=== PATIENT | female | born 1955 | race Caucasian/White ===

== ENCOUNTER 2020-09-20 20:17 | Inpatient (IN) | payer OTHER ==
[2020-09-20] MEDS ORDERED: VANCOMYCIN IV PER PHARMACY 1 EACH MISC MISCELLANE PRN (20:49)
[2020-09-20] MEDS ORDERED: VANCOMYCIN 1,750 MG in SODIUM CHLORIDE 0.9% 500 ML 500 ML IVPB STA (20:57)
[2020-09-20 21:00] LABS: Basophils % (A) 0 %; Eosinophils # (A) 0.1 k/uL (0-0.7); Eosinophils % (A) 1 %; HCT 36.8 % (34.0-46.0); HGB 12.1 gm/dL (11.4-16.0); Lymphocytes # (A) 1.7 k/uL (1.0-4.8); Lymphocytes % (A) 15 %; MCH 30.9 pg (25.0-35.0); MCHC 32.9 g/dL (31.0-37.0); MCV 93.9 fL (80.0-100.0); Mean Platelet Volume 8.1; Monocytes # (A) 0.5 k/uL (0-1.0); Monocytes % (A) 4 %; Neutrophils # (A) 8.6 k/uL (1.3-7.7); Neutrophils % (A) 78 %; Platelet Count 210 k/uL (150-450); RBC 3.92 m/uL (3.80-5.40); RDW 13.6 % (11.5-15.5)
[2020-09-20 21:09] LABS: African American GFR (CKD) >90 (>60 ml/min/1.73 sqM); Anion Gap 11 mmol/L; Blood Urea Nitrogen 21 mg/dL (7-17); Calcium 8.4 mg/dL (8.4-10.2); Carbon Dioxide 17 mmol/L (22-30); Chloride 108 mmol/L (98-107); Glucose 296 mg/dL (74-99); Non-African American GFR(CKD) 82 (>60 ml/min/1.73 sqM); Potassium 4.8 mmol/L (3.5-5.1); Sodium 136 mmol/L (137-145)
[2020-09-20 21:13] LABS: Magnesium 0.9 mg/dL (1.6-2.3)
[2020-09-20 21:36] LABS: INR 0.9 (<1.2); Prothrombin Time 9.8 sec (9.0-12.0)
[2020-09-20 21:38] LABS: Partial Thromboplastin Time 19.9 sec (22.0-30.0)
[2020-09-20 21:55] LABS: Glucose,Whole Blood 310 mg/dL (75-99)
[2020-09-20] MEDS: SODIUM CHLORIDE 0.9% 1,000 ML IV SCH (21:57)
--- NOTE | 2020-09-20 22:12 | ED ---
General Adult HPI - General Chief complaint: Arrhythmia/Palpitations Stated complaint: Tachycardia Time Seen by Provider: 09/20/20 20:30 Source: patient, RN/MD, RN notes reviewed, old records reviewed Mode of arrival: EMS Limitations: no limitations - History of Present Illness Initial comments: Patient is a 64-year-old female with past medical history remarkable for diabetes, hypertension, stomach ulcer percents emergency department after being transferred from an outside facility. At the outside facility, they diagnosed her with sinus tachycardia versus atrial flutter. They also believe that she had a left-sided pneumonia. She originally presented due to palpitations over the left side of her chest. She recently had a decrease in her metoprolol dosage. They're pending diagnosis was rebound his tachycardia versus infectious. Chest x-ray showed a left-sided pneumonia at that time and the patient had an elevated lactic acid above 4. They sent her to our emergency department for further evaluation. At the outside department, she did receive 1 g of Rocephin. She also received according to sign out nursing, 2400 mL of normal saline. Due to the concern for possible atrial flutter versus SVT versus sinus tachycardia, the outside emergency department did place the patient on a Labetalol drip. This was immediately discontinued upon arrival to our emergency department. The patient continues to state that she has mild palpitations with rhinorrhea as well as a mild nonproductive cough. She denies any fevers or chills. Denies any other chest pain, dyspnea. Denies any abdominal pain, nausea, vomiting, dysuria, hematuria, vaginal discharge or bleeding. She has no other acute complaints at this time. Patient states that she did feel right handed earlier when she had the palpitations. Upon arrival to our emergency department, patient's tachycardia is improved from 140 down to 100-110 bpm. Vital signs are otherwise stable. - Related Data Home Medications Medication Instructions Recorded Confirmed Insulin Detemir [Levemir Flextouch] 30 units SQ HS 09/20/20 09/20/20 Insulin Detemir [Levemir Flextouch] See Protocol SQ DAILY 09/20/20 09/20/20 Levothyroxine Sodium [Synthroid] 75 mcg PO AC-BRKFST 09/20/20 09/20/20 Lisinopril-Hctz 20-12.5 mg 1 tab PO DAILY 09/20/20 09/20/20 [Zestoretic 20-12.5] Metoprolol Succinate [Toprol XL] 25 mg PO HS 09/20/20 09/20/20 Pantoprazole Sodium [Protonix] 40 mg PO AC-BID 09/20/20 09/20/20 Pravastatin Sodium [Pravachol] 20 mg PO HS 09/20/20 09/20/20 glipiZIDE XL [Glucotrol Xl] 20 mg PO HS 09/20/20 09/20/20 metFORMIN HCL [Glucophage] 1,000 mg PO BID 09/20/20 09/20/20 sitaGLIPtin [Januvia] 100 mg PO DAILY 09/20/20 09/20/20 Allergies Allergy/AdvReac Type Severity Reaction Status Date / Time No Known Allergies Allergy Verified 09/20/20 21:28 Review of Systems ROS Statement: Those systems with pertinent positive or pertinent negative responses have been documented in the HPI. Review of Systems: CONST: Denies fever EYES: Denies blurry vision ENT: Endorses nasal congestion C/V: Endorses chest palpitations RESP: Denies shortness of breath GI: Denies abdominal pain : Denies dysuria SKIN: Denies rash. MSK: Denies joint pain. NEURO: Denies headache ROS Other: All systems not noted in ROS Statement are negative. Past Medical History Past Medical History: Diabetes Mellitus, Hypertension Additional Past Medical History / Comment(s): stomach ulcer History of Any Multi-Drug Resistant Organisms: None Reported Past Surgical History: Section Past Psychological History: No Psychological Hx Reported Smoking Status: Former smoker Past Alcohol Use History: None Reported Past Drug Use History: None Reported General Exam - General Exam Comments Initial Comments: General: Appears in no acute distress.. Appears nontoxic. HEAD: Normal with no signs of head trauma. EYES: PERRLA, EOMI, conjunctiva normal, no discharge. Pupils are 3 mm and equal bilaterally. ENT: Hearing grossly intact, normal oropharynx. RESPIRATORY: Clear breath sounds bilaterally. No wheezes, rales, or rhonchi. C/V: Patient is tachycardic with a regular rhythm. S1 and S2 auscultated. No peripheral edema. Peripheral pulses are 2+ and intact throughout. ABD: Abd is soft, nontender, nondistended. Unremarkable abdominal exam. EXT: Normal range of motion, no obvious deformity SKIN: No rashes or lesions observed on exposed skin. NEURO: Alert and oriented 4. No focal sensory strength deficits. 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 She has a lactic acidosis, is tachycardic. Remainder of her vital signs are unremarkable. There was evidence of a left-sided pneumonia on chest x-ray the outside hospital. Patient already received Rocephin at the outside hospital, and therefore we will obtain blood cultures here as well as a repeat lactic acid level. Patient will be started on vancomycin. The outside hospital already met the 20 mL per KG fluid requirement, patient will be started on maintenance drip. We will obtain broad repeat laboratory studies including a d-dimer, lactic acid, basic labs, troponin, COVID-19 swab. Repeat EKG was also obtained. She'll be connected to continuous site monitor while she is in the department. She was in agreement with this plan. As stated in the HPI, the low beta all drip that the patient was started on at the outside hospital was stopped immediately upon arrival in o emergency department. Repeat EKG revealed normal sinus tachycardia without any signs of acute is chemia. I did review the patient's prior EKG from the outside hospital and it appears to be sinus tachycardia, without signs of atrial flutter, SVT, atrial fibrillation. Also no signs of acute ischemia on his outside EKG. Repeat laboratory studies were remarkable for a hypomagnesemia of 0.8 which was replenished. Troponin is negative. COVID-19 swab is negative. Patient is hyperglycemic. Bicarb is slightly decreased to 17, no anion gap. Patient has a slight leukocytosis of 11.0. D-dimer is within normal limits. Repeat lactic acid is elevated to 5.1, which is unexpected as she received >20cc/kg fluids at the outside facility. Repeat exam, patient remains relatively a symptomatically. She states her palpitations are improving. Patient's tachycardia is also improved down to approximately 100 bpm. I did discuss with her the results of her laboratory studies no we will continue antibiotics patient will require admission hospital for evaluation by cardiology. She was in agreement this plan. Consult to Dr. 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 He can evaluated the patient and the morning. I spoke with the admitting team, [facility] physician Dr. York as the patient's PCP does not admit under any group at this hospital. He accepted the admission. We determined that the patient should be started on cefepime in addition to the vancomycin to cover for sepsis as well as administered in additional 1 L fluid bolus in addition to maintenance fluids. Repeat lactic acid will be followed up. Patient will be admitted to stepdown telemetry. Patient was admitted and serous condition to the telemetry stepdown floor. - Lab Data Result diagrams: 09/20/20 20:52 09/20/20 20:52 Lab Results 09/20/20 09/20/20 09/20/20 Range/Units 20:52 20:52 20:52 WBC 11.0 H (3.8-10.6) k/uL RBC 3.92 (3.80-5.40) m/uL Hgb 12.1 (11.4-16.0) gm/dL Hct 36.8 (34.0-46.0) % MCV 93.9 (80.0-100.0) fL MCH 30.9 (25.0-35.0) pg MCHC 32.9 (31.0-37.0) g/dL RDW 13.6 (11.5-15.5) % Plt Count 210 (150-450) k/uL MPV 8.1 Neutrophils % 78 % Lymphocytes % 15 % Monocytes % 4 % Eosinophils % 1 % Basophils % 0 % Neutrophils # 8.6 H (1.3-7.7) k/uL Lymphocytes # 1.7 (1.0-4.8) k/uL Monocytes # 0.5 (0-1.0) k/uL Eosinophils # 0.1 (0-0.7) k/uL Basophils # 0.0 (0-0.2) k/uL PT 9.8 (9.0-12.0) sec INR 0.9 (<1.2) APTT 19.9 L (22.0-30.0) sec D-Dimer 0.27 (<0.60) mg/L FEU Sodium 136 L (137-145) mmol/L Potassium 4.8 (3.5-5.1) mmol/L Chloride 108 H (98-107) mmol/L Carbon Dioxide 17 L (22-30) mmol/L Anion Gap 11 mmol/L BUN 21 H (7-17) mg/dL Creatinine 0.78 (0.52-1.04) mg/dL Est GFR (CKD-EPI)AfAm >90 (>60 ml/min/1.73 sqM) Est GFR (CKD-EPI)NonAf 82 (>60 ml/min/1.73 sqM) Glucose 296 H (74-99) mg/dL POC Glucose (mg/dL) (75-99) mg/dL POC Glu Packing Tractor Machine Operator ID Plasma Lactic Acid Jose Carlos (0.7-2.0) mmol/L Calcium 8.4 (8.4-10.2) mg/dL Magnesium 0.9 L* (1.6-2.3) mg/dL Troponin I (0.000-0.034) ng/mL Coronavirus (PCR) (Not Detectd) 09/20/20 09/20/20 09/20/20 Range/Units 20:52 20:52 20:52 WBC (3.8-10.6) k/uL RBC (3.80-5.40) m/uL Hgb (11.4-16.0) gm/dL Hct (34.0-46.0) % MCV (80.0-100.0) fL MCH (25.0-35.0) pg MCHC (31.0-37.0) g/dL RDW (11.5-15.5) % Plt Count (150-450) k/uL MPV Neutrophils % % Lymphocytes % % Monocytes % % Eosinophils % % Basophils % % Neutrophils # (1.3-7.7) k/uL Lymphocytes # (1.0-4.8) k/uL Monocytes # (0-1.0) k/uL Eosinophils # (0-0.7) k/uL Basophils # (0-0.2) k/uL PT (9.0-12.0) sec INR (<1.2) APTT (22.0-30.0) sec D-Dimer (<0.60) mg/L FEU Sodium (137-145) mmol/L Potassium (3.5-5.1) mmol/L Chloride (98-107) mmol/L Carbon Dioxide (22-30) mmol/L Anion Gap mmol/L BUN (7-17) mg/dL Creatinine (0.52-1.04) mg/dL Est GFR (CKD-EPI)AfAm (>60 ml/min/1.73 sqM) Est GFR (CKD-EPI)NonAf (>60 ml/min/1.73 sqM) Glucose (74-99) mg/dL POC Glucose (mg/dL) (75-99) mg/dL POC Glu Packing Tractor Machine Operator ID Plasma Lactic Acid Jose Carlos 5.1 H* (0.7-2.0) mmol/L Calcium (8.4-10.2) mg/dL Magnesium (1.6-2.3) mg/dL Troponin I <0.012 (0.000-0.034) ng/mL Coronavirus (PCR) Not Detected (Not Detectd) 09/20/20 09/20/20 Range/Units 21:22 21:53 WBC (3.8-10.6) k/uL RBC (3.80-5.40) m/uL Hgb (11.4-16.0) gm/dL Hct (34.0-46.0) % MCV (80.0-100.0) fL MCH (25.0-35.0) pg MCHC (31.0-37.0) g/dL RDW (11.5-15.5) % Plt Count (150-450) k/uL MPV Neutrophils % % Lymphocytes % % Monocytes % % Eosinophils % % Basophils % % Neutrophils # (1.3-7.7) k/uL Lymphocytes # (1.0-4.8) k/uL Monocytes # (0-1.0) k/uL Eosinophils # (0-0.7) k/uL Basophils # (0-0.2) k/uL PT (9.0-12.0) sec INR (<1.2) APTT (22.0-30.0) sec D-Dimer (<0.60) mg/L FEU Sodium (137-145) mmol/L Potassium (3.5-5.1) mmol/L Chloride (98-107) mmol/L Carbon Dioxide (22-30) mmol/L Anion Gap mmol/L BUN (7-17) mg/dL Creatinine (0.52-1.04) mg/dL Est GFR (CKD-EPI)AfAm (>60 ml/min/1.73 sqM) Est GFR (CKD-EPI)NonAf (>60 ml/min/1.73 sqM) Glucose (74-99) mg/dL POC Glucose (mg/dL) 310 H (75-99) mg/dL POC Glu Packing Tractor Machine Operator ID Danni Humphrey Plasma Lactic Acid Jose Carlos (0.7-2.0) mmol/L Calcium (8.4-10.2) mg/dL Magnesium 0.8 L* (1.6-2.3) mg/dL Troponin I (0.000-0.034) ng/mL Coronavirus (PCR) (Not Detectd) - EKG Data -: EKG Interpreted by Me EKG Comments: 12-lead Electrocardiogram Interpretation Note EKG was reviewed and interpreted by myself. 12-lead ECG performed at 2021 is interpreted by me as revealing sinus tachycardia at a rate of 108 beats per minute. Orrum is normal. NC interval is 176 seconds, QRS duration is 82 ms, QTc is 434 ms.. There were no ST or T wave abnormalities to suggest myocardial ischemia or injury. R wave progression across the precordium was satisfactory. By my interpretation this EKG is non-diagnostic for acute ischemia. Disposition Clinical Impression: Lactic acidosis, Sepsis, Palpitations, Hypomagnesemia, Community acquired pneumonia, Hyperglycemia, History of diabetes mellitus, Sinus tachycardia Disposition: ADMITTED IP TO THIS HOSP Condition: Serious Referrals: Thai Nelson MD [Primary Care Provider] - 1-2 days
[2020-09-20] MEDS ORDERED: KETOROLAC 15 MG/ML 1 ML VIAL IVP PRN (22:15)
[2020-09-20] MEDS ORDERED: NALOXONE 0.4 MG/ML 1 ML VIAL IV PRN (22:15)
[2020-09-20] MEDS ORDERED: ONDANSETRON 4 MG/2 ML VIAL IVP PRN (22:15)
[2020-09-20] MEDS ORDERED: MORPHINE SULFATE 4 MG/ML SYRINGE IV PRN (22:15)
[2020-09-20] MEDS ORDERED: SODIUM CHLORIDE 0.9% 1,000 ML IV ONE (22:23)
[2020-09-20] MEDS ORDERED: CEFEPIME 1 GM in SODIUM CHLORIDE 0.9% 50 ML IVPB ONE (22:30)
[2020-09-20] MEDS: MAGNESIUM SULFATE-D5W PMX 1 GM in DEXTROSE/WATER 1 100ML.BAG IVPB SCH ×2 (22:48→23:49)
[2020-09-21] MEDS ORDERED: INSULIN ASPART (NovoLOG) 100 UNIT/ML VIAL SQ SCH
[2020-09-21] MEDS ORDERED: VANCOMYCIN IV PER PHARMACY 1 EACH MISC MISCELLANE PRN (00:11)
--- NOTE | 2020-09-21 00:12 | P.HPIM ---
History of Present Illness H&P Date: 09/20/20 The patient is a 64-year-old female with a PMH of type II DM, hypertension, hyperlipidemia, and hypothyroidism who was sent in from [facility] where she presented earlier today with complaints of palpitations and not feeling well. The patient reports that she had been feeling somewhat under the weather over the past 1-2 days and that today she became alarmed when she felt palpitations, at which time she decided to go to the emergency room. The patient did report that her chronic metoprolol was reduced from 25 mg twice a day to 25 mg once daily by her multicultural services librarian Dr. Cotto. Patient reports and unchanged chronic nonproductive cough along with just feeling lethargic. She denied fevers, chills, nausea, vomiting, diarrhea. Denied headaches, numbness, tingling, visual changes, neck pain. Denied rashes, urinary complaints. At [facility], the patient underwent an extensive evaluation. Her vitals were initially BP 163/92, pulse 131, SpO2 97%, respirations 17, and temp 98.4. Chest x-ray revealed a possible left basilar pneumonia. EKG revealed sinus tachycardia. Laboratory evaluation revealed WC count of 15.4 and lactic acid 4.7. The patient was subsequently transferred to [facility] for further management. At our facility, the patient's lactic acid was 5.1, WC count 11.0, troponin less than 0.012, and magnesium 0.9. Burdick virus PCR was negative. EKG revealed sinus tachycardia at 108 bpm. Review of systems: Pertinent positives and negatives as discussed in HPI, a complete review of systems was performed and all other systems are negative. Physical examination: General: non toxic, no distress, appears at stated age, obese Derm: no unusual rashes/lesions no unusual ecchymoses, warm, dry Head: atraumatic, normocephalic, symmetric Eyes: EOMI, no lid lag, anicteric sclera, pupils equal round reactive to light ENT: Nose and ears atraumatic, no thrush, no pharyngeal erythema Neck: No thyromegaly, no cervical lymphadenopathy, trachea midline, supple Mouth: no lip lesion, mucus membranes moist Cardiovascular: S1S2 reg, no murmur, positive posterior tibial pulse bilateral, no edema, capillary refill less than 2 seconds Lungs: CTA bilateral, no rhonchi, no rales , no accessory muscle use Abdominal: soft, nontender to palpation, no guarding, no appreciable organomegaly, normal bowel sounds Ext: no gross muscle atrophy, muscle strength 5 out of 5 in all 4 extremities grossly, no contractures, Neuro: CN II-XI grossly intact, light touch intact all 4 extremities, finger to nose within normal limits, negative kernigs Psych: Alert, oriented, appropriate affect Assessment/plan SIRS, unknown etiology -C/w broad spectrum IV antibiotics at this time -Follow up blood cultures -Continue with IV fluids Lactic acidosis -Monitor to resolution Hypomagnesemia -Replace and monitor Chronic conditions: Type II DM, hypertension, hyperlipidemia -Continue home meds -Lispro insulin sliding scale blood glucose monitoring -Check A1c DVT prophylaxis -Heparin subq The patient is admitted with an anticipated greater than 2 midnight stay for evaluation of SIRS. CODE STATUS:Full Code Discussed with: Patient Anticipated discharge date: 2-[address]: Home Past Medical History Past Medical History: Diabetes Mellitus, Hypertension Additional Past Medical History / Comment(s): stomach ulcer History of Any Multi-Drug Resistant Organisms: None Reported Past Surgical History: Section Past Psychological History: No Psychological Hx Reported Smoking Status: Former smoker Past Alcohol Use History: None Reported Past Drug Use History: None Reported Medications and Allergies Home Medications Medication Instructions Recorded Confirmed Type Insulin Detemir [Levemir Flextouch] 30 units SQ HS 09/20/20 09/20/20 History Insulin Detemir [Levemir Flextouch] See Protocol SQ DAILY 09/20/20 09/20/20 History Levothyroxine Sodium [Synthroid] 75 mcg PO AC-BRKFST 09/20/20 09/20/20 History Lisinopril-Hctz 20-12.5 mg 1 tab PO DAILY 09/20/20 09/20/20 History [Zestoretic 20-12.5] Metoprolol Succinate [Toprol XL] 25 mg PO HS 09/20/20 09/20/20 History Pantoprazole Sodium [Protonix] 40 mg PO AC-BID 09/20/20 09/20/20 History Pravastatin Sodium [Pravachol] 20 mg PO HS 09/20/20 09/20/20 History glipiZIDE XL [Glucotrol Xl] 20 mg PO HS 09/20/20 09/20/20 History metFORMIN HCL [Glucophage] 1,000 mg PO BID 09/20/20 09/20/20 History sitaGLIPtin [Januvia] 100 mg PO DAILY 09/20/20 09/20/20 History Allergies Allergy/AdvReac Type Severity Reaction Status Date / Time No Known Allergies Allergy Verified 09/20/20 21:28 Physical Exam Vitals: Vital Signs Temp Pulse Pulse Resp BP Pulse Ox 09/20/20 20:30 105 H 106 H 18 117/62 97 09/20/20 20:20 98 F 109 H 18 113/65 97 Intake and Output 09/20/20 09/20/20 09/21/20 14:59 22:59 06:59 Other: Weight 99.79 kg Results CBC & Chem 7: 09/20/20 20:52 09/20/20 20:52 Labs: Abnormal Lab Results - Last 24 Hours (Table) 09/20/20 09/20/20 09/20/20 Range/Units 20:52 20:52 20:52 WBC 11.0 H (3.8-10.6) k/uL Neutrophils # 8.6 H (1.3-7.7) k/uL APTT 19.9 L (22.0-30.0) sec Sodium 136 L (137-145) mmol/L Chloride 108 H (98-107) mmol/L Carbon Dioxide 17 L (22-30) mmol/L BUN 21 H (7-17) mg/dL Glucose 296 H (74-99) mg/dL POC Glucose (mg/dL) (75-99) mg/dL Plasma Lactic Acid Jose Carlos (0.7-2.0) mmol/L Magnesium 0.9 L* (1.6-2.3) mg/dL 09/20/20 09/20/20 09/20/20 Range/Units 20:52 21:22 21:53 WBC (3.8-10.6) k/uL Neutrophils # (1.3-7.7) k/uL APTT (22.0-30.0) sec Sodium (137-145) mmol/L Chloride (98-107) mmol/L Carbon Dioxide (22-30) mmol/L BUN (7-17) mg/dL Glucose (74-99) mg/dL POC Glucose (mg/dL) 310 H (75-99) mg/dL Plasma Lactic Acid Jose Carlos 5.1 H* (0.7-2.0) mmol/L Magnesium 0.8 L* (1.6-2.3) mg/dL
[2020-09-21 03:17] LABS: HCT 30.5 % (34.0-46.0); HGB 10.6 gm/dL (11.4-16.0); MCHC 34.7 g/dL (31.0-37.0); MCV 92.3 fL (80.0-100.0); Mean Platelet Volume 7.5; Platelet Count 200 k/uL (150-450); RDW 14.1 % (11.5-15.5); WBC 9.4 k/uL (3.8-10.6)
[2020-09-21 03:32] LABS: African American GFR (CKD) >90 (>60 ml/min/1.73 sqM); Anion Gap 6 mmol/L; Blood Urea Nitrogen 18 mg/dL (7-17); Carbon Dioxide 20 mmol/L (22-30); Chloride 112 mmol/L (98-107); Glucose 267 mg/dL (74-99); Magnesium 1.6 mg/dL (1.6-2.3); Non-African American GFR(CKD) 85 (>60 ml/min/1.73 sqM); Potassium 4.3 mmol/L (3.5-5.1); Sodium 138 mmol/L (137-145)
[2020-09-21 05:56] LABS: Glucose,Whole Blood 220 mg/dL (75-99)
[2020-09-21] MEDS: INSULIN ASPART (NovoLOG) 100 UNIT/ML VIAL SQ SCH ×4 (05:58→20:27)
[2020-09-21] MEDS: PANTOPRAZOLE 40 MG TABLET PO SCH ×2 (05:59→17:04)
[2020-09-21] MEDS: LEVOTHYROXINE 75 MCG TAB PO SCH (05:59)
--- NOTE | 2020-09-21 07:22 | XR ---
EXAMINATION TYPE: XR chest 1V DATE OF EXAM: 09/21/2020 COMPARISON: NONE HISTORY: 64 year-old female shortness of breath, dyspnea TECHNIQUE: Single frontal view of the chest is obtained. FINDINGS: Heart upper limits of normal in size. There is some opacity at the peripheral left base that seems to partially silhouette the cardiac apex. Right lung and pleural space appear clear. IMPRESSION: Peripheral left basilar opacity partially silhouettes the cardiac apex. Correlate for underlying atel ectasis versus pneumonia.
[2020-09-21] MEDS: HEPARIN SODIUM,PORCINE/PF 5,000 UNIT/0.5 ML SYRINGE SQ SCH ×3 (08:54→23:39)
[2020-09-21] MEDS: INSULIN DETEMIR (LEVEMIR) 100 UNIT/ML SYR SQ SCH (08:54)
[2020-09-21] MEDS: MAGNESIUM OXIDE 400 MG TAB PO SCH ×2 (08:54→20:29)
[2020-09-21] MEDS: SODIUM CHLORIDE 0.9% 1,000 ML IV SCH ×2 (08:54→17:07)
[2020-09-21] MEDS: lisinopriL 20 MG TAB PO SCH (08:55)
[2020-09-21] MEDS ORDERED: NON FORMULARY DRUG (Sitagliptin 100 MG Tab) PO SCH (09:00)
[2020-09-21] MEDS ORDERED: LISINOPRIL-HCTZ 20-12.5 MG 1 EACH TAB PO SCH (09:00)
[2020-09-21] MEDS ORDERED: NON FORMULARY DRUG (Metformin Hcl [Glucophage] 1,000 MG Tablet) PO SCH (09:00)
[2020-09-21] MEDS ORDERED: METOPROLOL TARTRATE 25 MG TAB PO SCH (10:15)
--- NOTE | 2020-09-21 10:16 | P.PN ---
Subjective Progress Note Date: 09/21/20 Patient was seen and evaluated by me today. She was sitting at the edge of the bed. She denies any shortness of breath or cough. Patient said that her main concern with palpitation and fast heart rate around 130 at home. Patient told me that her sales administration manager decrease her metoprolol dose from 25 mg of metoprolol tartrate twice daily to 25 mg Toprol-XL once a day. Patient was evaluated in the ER and chest x-ray showed possible left lung infiltrate concerning for underlying pneumonia or atelectasis. Patient does not have any clinical symptoms of pneumonia. For unclear reasons to me, patient was started on IV cefepime and vancomycin. No procalcitonin was ordered. Her heart rate this morning was around 102 at rest. Objective - Vital Signs Vital signs: Vital Signs Temp 97.8 F 09/21/20 08:00 Pulse 103 H 09/21/20 08:00 Resp 16 09/21/20 08:00 BP 130/65 09/21/20 08:00 Pulse Ox 98 09/21/20 08:00 Intake & Output 09/20/20 09/21/20 09/21/20 18:59 06:59 18:59 Intake Total 250 240 Balance 250 240 Weight 105.4 kg Intake: Oral 250 240 Other: Voiding Method Toilet # Voids 1 - Exam General: The patient is awake and alert, in no distress Eye: there is normal conjunctiva bilaterally. Neck: The neck is supple, there is no JVD. Cardiovascular: Normal S1-S2, no S3-S4, no murmurs. Respiratory: Lungs clear to auscultation bilaterally Gastrointestinal: Abdomen is soft, nontender Musculoskeletal: There is no pedal edema. Neurological:. Speech is normal. Skin: Skin is warm and dry - Labs CBC & Chem 7: 09/21/20 03:01 09/21/20 03:01 Labs: Abnormal Lab Results - Last 24 Hours (Table) 09/20/20 09/20/20 09/20/20 Range/Units 20:52 20:52 20:52 WBC 11.0 H (3.8-10.6) k/uL RBC (3.80-5.40) m/uL Hgb (11.4-16.0) gm/dL Hct (34.0-46.0) % Neutrophils # 8.6 H (1.3-7.7) k/uL APTT 19.9 L (22.0-30.0) sec Sodium 136 L (137-145) mmol/L Chloride 108 H (98-107) mmol/L Carbon Dioxide 17 L (22-30) mmol/L BUN 21 H (7-17) mg/dL Glucose 296 H (74-99) mg/dL POC Glucose (mg/dL) (75-99) mg/dL Plasma Lactic Acid Jose Carlos (0.7-2.0) mmol/L Calcium (8.4-10.2) mg/dL Magnesium 0.9 L* (1.6-2.3) mg/dL 09/20/20 09/20/20 09/20/20 Range/Units 20:52 21:22 21:53 WBC (3.8-10.6) k/uL RBC (3.80-5.40) m/uL Hgb (11.4-16.0) gm/dL Hct (34.0-46.0) % Neutrophils # (1.3-7.7) k/uL APTT (22.0-30.0) sec Sodium (137-145) mmol/L Chloride (98-107) mmol/L Carbon Dioxide (22-30) mmol/L BUN (7-17) mg/dL Glucose (74-99) mg/dL POC Glucose (mg/dL) 310 H (75-99) mg/dL Plasma Lactic Acid Jose Carlos 5.1 H* (0.7-2.0) mmol/L Calcium (8.4-10.2) mg/dL Magnesium 0.8 L* (1.6-2.3) mg/dL 09/21/20 09/21/20 09/21/20 Range/Units 00:04 03:01 03:01 WBC (3.8-10.6) k/uL RBC 3.30 L (3.80-5.40) m/uL Hgb 10.6 L (11.4-16.0) gm/dL Hct 30.5 L (34.0-46.0) % Neutrophils # (1.3-7.7) k/uL APTT (22.0-30.0) sec Sodium (137-145) mmol/L Chloride 112 H (98-107) mmol/L Carbon Dioxide 20 L (22-30) mmol/L BUN 18 H (7-17) mg/dL Glucose 267 H (74-99) mg/dL POC Glucose (mg/dL) (75-99) mg/dL Plasma Lactic Acid Jose Carlos 4.0 H* (0.7-2.0) mmol/L Calcium 8.0 L (8.4-10.2) mg/dL Magnesium (1.6-2.3) mg/dL 09/21/20 09/21/20 09/21/20 Range/Units 03:01 05:55 07:36 WBC (3.8-10.6) k/uL RBC (3.80-5.40) m/uL Hgb (11.4-16.0) gm/dL Hct (34.0-46.0) % Neutrophils # (1.3-7.7) k/uL APTT (22.0-30.0) sec Sodium (137-145) mmol/L Chloride (98-107) mmol/L Carbon Dioxide (22-30) mmol/L BUN (7-17) mg/dL Glucose (74-99) mg/dL POC Glucose (mg/dL) 220 H (75-99) mg/dL Plasma Lactic Acid Jose Carlos 2.6 H* 3.5 H* (0.7-2.0) mmol/L Calcium (8.4-10.2) mg/dL Magnesium (1.6-2.3) mg/dL Assessment and Plan Assessment: This is a 64-year-old female with past medical history noted below that presented to [facility] with palpitation. 12-lead EKG showed sinus tachycardia. Patient was transferred to our hospital for further management. Below is as of her medical problems 1. Suspected left lung pneumonia, discontinue IV vancomycin and cefepime and switched to azithromycin and ceftriaxone. Check pro calcitonin. Less likely pneumonia based on clinical presentation. Incentive spirometer ordered the bedside. 2. Sinus tachycardia: May be reflex tachycardia secondary to beta ina withdrawal? Thyroid function tests within normal range. I would put the patient back on her regular dose of metoprolol titrate 25 mg twice daily. Continue nursing home admissions director. 3. Lactic acidosis, most likely secondary to metformin use. I recommend to discontinue metformin permanently. No evidence of sepsis clinically 4. Type 2 diabetes, hold oral medication continue sliding scale insulin. I would resume her home dose of long-acting insulin 5. Severe hypomagnesemia, replaced IV in the ER.. Magnesium level I.6 today. I started magnesium oxide 400 mg twice daily. Repeat lab work in the morning. Today, I reviewed her medication list and lab work results. Encourage the patient to get up and walk around the hallway to monitor her heart rate. We will continue current management otherwise. Repeat lab work in the morning. Anticipate discharge home tomorrow.
[2020-09-21] MEDS: TRIAMTERENE-HCTZ 75-50MG 1 EACH TAB PO SCH (10:21)
--- NOTE | 2020-09-21 10:53 | P.CRDCN ---
History of Present Illness History of present illness: HISTORY OF PRESENTING ILLNESS This is a pleasant 64-year-old female past medical history significant for obese mellitus, hypertension, dyslipidemia and hypothyroidism. She follows in the office with Dr. Hope. We have been asked to see in consultation for tachycardia. He presented to the hospital with symptoms of palpitations and dizziness. She states she checked her heart rate at home and it was in the 130s. Prompting her to present to the emergency department. On arrival she was found to be tachycardic with a heart rate of 140. She was given IV fluid hydration and her symptoms improved. She is seen and examined resting comfortably lying flat in no acute distress. She denies any further symptoms of palpitations. She has no dizziness. She denies chest pain or shortness of breath. She saw Dr. Hope in the office last week and he changed her beta ina from short acting Lopressor to long-acting Toprol. No change in dosage. DIAGNOSTICS EKG reveals sinus tachycardia heart rate of 108. Telemetry tracings indicate sinus mechanism. Chest xray left basilar opacity, atelectasis versus pneumonia. Laboratory reviewed, WBC 9.4, hemoglobin 10.6, platelets 200, sodium 138, potassium 4.3, creatinine 0.75, lactic acid 3.5, troponin negative 3, magnesium on admission 0.9 repeat today 1.6, TSH 1.18. Current cardiac medications include lisinopril/hydrochlorothiazide 20/12.5 mg daily, Toprol 25 mg daily and pravastatin 20 mg daily. Most recent echocardiogram obtained in 2017 revealed preserved LV systolic function with impaired diastolic function. REVIEW OF SYSTEMS At the time of my exam: CONSTITUTIONAL: Denies fever or chills. CARDIOVASCULAR: Denies chest pain, shortness of breath, orthopnea, PND or palpitations. RESPIRATORY: Denies cough. GASTROINTESTINAL: Denies abdominal pain, diarrhea, constipation, nausea or vomiting. MUSCULOSKELETAL: Denies myalgias. NEUROLOGIC: Denies numbness, tingling, headache or weakness. ENDOCRINE: Denies fatigue, weight change, polydipsia or polyurina. GENITOURINARY: Denies burning, hematuria or urgency with micturation. HEMATOLOGIC: Denies history of anemia or bleeding. PHYSICAL EXAMINATION Blood pressure 130/65 heart rate 103 afebrile and maintaining oxygen saturation on room air. CONSTITUTIONAL: No apparent distress. HEENT: Head is normocephalic. Pupils are equal, round. Sclerae anicteric. Mucous membranes of the mouth are moist. No JVD. No carotid bruit. CHEST EXAMINATION: Lungs are clear to auscultation. No chest wall tenderness is noted on palpation or with deep breathing. HEART EXAMINATION: Regular rate and rhythm. S1, S2 heard. No murmurs, gallops or rub. ABDOMEN: Soft, nontender. EXTREMITIES: 2+ peripheral pulses, no lower extremity edema and no calf tenderness. NEUROLOGIC EXAMINATION: Patient is awake, alert and oriented x3. ASSESSMENT Sinus tachycardia Lactic acidosis Hypomagnesemia Possible pneumonia Obesity, BMI 39 PLAN Continue toprol 25 mg daily. Tachycardia could be a rebound tachycardia from the recent change. This will take about 3-5 days to resolve. Discontinue hydrochlorothiazide. Add maxzide to her daily regimen. Follow electrolytes closely. Obtain 2D echocardiogram and doppler study to assess cardiac structure and function. Check for orthostatic changes. Encourage incentive spirometer use. Further recommendations to follow based upon clinical course. Thank you kindly for this consultation. Nurse Practitioner note has been reviewed, I agree with a documented findings and plan of care. Patient was seen and examined. Past Medical History Past Medical History: Diabetes Mellitus, Hypertension Additional Past Medical History / Comment(s): stomach ulcer History of Any Multi-Drug Resistant Organisms: None Reported Past Surgical History: Section Past Anesthesia/Blood Transfusion Reactions: No Reported Reaction Past Psychological History: No Psychological Hx Reported Smoking Status: Former smoker Past Alcohol Use History: None Reported Past Drug Use History: None Reported - Past Family History Mother Family Medical History: Cancer, Coronary Artery Disease (CAD), Diabetes Mellitus Father Family Medical History: Cancer Medications and Allergies Home Medications Medication Instructions Recorded Confirmed Type Insulin Detemir [Levemir Flextouch] 30 units SQ HS 09/20/20 09/20/20 History Insulin Detemir [Levemir Flextouch] See Protocol SQ DAILY 09/20/20 09/20/20 History Levothyroxine Sodium [Synthroid] 75 mcg PO AC-BRKFST 09/20/20 09/20/20 History Lisinopril-Hctz 20-12.5 mg 1 tab PO DAILY 09/20/20 09/20/20 History [Zestoretic 20-12.5] Metoprolol Succinate [Toprol XL] 25 mg PO HS 09/20/20 09/20/20 History Pantoprazole Sodium [Protonix] 40 mg PO AC-BID 09/20/20 09/20/20 History Pravastatin Sodium [Pravachol] 20 mg PO HS 09/20/20 09/20/20 History glipiZIDE XL [Glucotrol Xl] 20 mg PO HS 09/20/20 09/20/20 History metFORMIN HCL [Glucophage] 1,000 mg PO BID 09/20/20 09/20/20 History sitaGLIPtin [Januvia] 100 mg PO DAILY 09/20/20 09/20/20 History Allergies Allergy/AdvReac Type Severity Reaction Status Date / Time No Known Allergies Allergy Verified 09/20/20 21:28 Physical Exam Vitals: Vital Signs Temp Pulse Pulse Resp BP BP Pulse Ox 09/21/20 08:00 97.8 F 103 H 16 130/65 98 09/21/20 03:37 98.8 F 116 H 15 123/57 96 09/21/20 01:41 18 09/20/20 23:05 98.9 F 105 H 18 129/59 97 09/20/20 20:30 105 H 106 H 18 117/62 97 09/20/20 20:20 98 F 109 H 18 113/65 97 Intake and Output 09/20/20 09/21/20 09/21/20 22:59 06:59 14:59 Intake Total 250 Balance 250 Intake: Oral 250 Other: # Voids 1 Weight 99.79 kg 105.4 kg Results 09/21/20 03:01 09/21/20 03:01 Cardiac Enzymes 09/20/20 09/21/20 09/21/20 Range/Units 20:52 00:04 03:01 Troponin I <0.012 <0.012 <0.012 (0.000-0.034) ng/mL Coagulation 09/20/20 Range/Units 20:52 PT 9.8 (9.0-12.0) sec APTT 19.9 L (22.0-30.0) sec CBC 09/20/20 09/21/20 Range/Units 20:52 03:01 WBC 11.0 H 9.4 (3.8-10.6) k/uL RBC 3.92 3.30 L (3.80-5.40) m/uL Hgb 12.1 10.6 L (11.4-16.0) gm/dL Hct 36.8 30.5 L (34.0-46.0) % Plt Count 210 200 (150-450) k/uL Comprehensive Metabolic Panel 09/20/20 09/21/20 Range/Units 20:52 03:01 Sodium 136 L 138 (137-145) mmol/L Potassium 4.8 4.3 (3.5-5.1) mmol/L Chloride 108 H 112 H (98-107) mmol/L Carbon Dioxide 17 L 20 L (22-30) mmol/L BUN 21 H 18 H (7-17) mg/dL Creatinine 0.78 0.75 (0.52-1.04) mg/dL Glucose 296 H 267 H (74-99) mg/dL Calcium 8.4 8.0 L (8.4-10.2) mg/dL Current Medications Generic Name Dose Route Start Last Admin Trade Name Freq PRN Reason Stop Dose Admin Lisinopril/HCTZ 1 each 09/21/20 09:00 Lisinopril-Hctz 20-12.5 Mg 1 Each Tab PO DAILY [facility] Heparin Sodium (Porcine) 5,000 unit 09/21/20 08:00 Heparin Sodium,Porcine/Pf 5,000 Unit/0.5 Ml Syringe SQ Q8HR [facility] Sodium Chloride 1,000 mls @ 100 mls/hr 09/20/20 22:00 09/20/20 21:57 Saline 0.9% IV 100 mls/hr .Q10H [facility] Administration Cefepime HCl 1 gm/ Sodium 50 mls @ 12.5 mls/hr 09/21/20 12:00 Chloride IVPB Q12H [facility] Vancomycin HCl 1,750 mg/ 500 mls @ 167 mls/hr 09/21/20 14:00 Sodium Chloride IVPB Q16H [facility] Insulin Aspart 0 unit 09/21/20 07:30 09/21/20 05:58 Insulin Aspart (Novolog) 100 Unit/Ml Vial SQ 3 unit ACHS [facility] Administration Protocol Insulin Detemir 15 unit 09/21/20 08:15 Insulin Detemir (Levemir) 100 Unit/Ml Syr SQ DAILY@0700 [facility] Insulin Detemir 15 unit 09/21/20 21:00 Insulin Detemir (Levemir) 100 Unit/Ml Syr SQ HS [facility] Ketorolac Tromethamine 15 mg 09/20/20 22:15 Ketorolac 15 Mg/Ml 1 Ml Vial IVP 09/23/20 22:17 Q6HR PRN Moderate Pain Levothyroxine Sodium 75 mcg 09/21/20 06:30 09/21/20 05:59 Levothyroxine 75 Mcg Tab PO 75 mcg DAILY@0630 [facility] Administration Magnesium Oxide 400 mg 09/21/20 09:00 Magnesium Oxide 400 Mg Tab PO BID [facility] Metoprolol Succinate 25 mg 09/21/20 21:00 Metoprolol Succinate (Er) 25 Mg Tab.Er.24h PO HS [facility] Morphine Sulfate 4 mg 09/20/20 22:15 Morphine Sulfate 4 Mg/Ml Syringe IV Q4HR PRN Severe Pain Naloxone HCl 0.2 mg 09/20/20 22:15 Naloxone 0.4 Mg/Ml 1 Ml Vial IV Q2M PRN Opioid Reversal Ondansetron HCl 4 mg 09/20/20 22:15 Ondansetron 4 Mg/2 Ml Vial IVP Q8HR PRN Nausea And Vomiting Pantoprazole Sodium 40 mg 09/21/20 07:30 09/21/20 05:59 Pantoprazole 40 Mg Tablet PO 40 mg AC-BID [facility] Administration Pravastatin Sodium 20 mg 09/21/20 21:00 Pravastatin Sodium 20 Mg Tab PO HS [facility] Intake and Output 09/20/20 09/21/20 09/21/20 22:59 06:59 14:59 Intake Total 250 Balance 250 Intake: Oral 250 Other: # Voids 1 Weight 99.79 kg 105.4 kg 09/21/20 03:01 09/21/20 03:01
[2020-09-21 11:47] LABS: Glucose,Whole Blood 283 mg/dL (75-99)
[2020-09-21] MEDS ORDERED: CEFEPIME 1 GM in SODIUM CHLORIDE 0.9% 50 ML IVPB SCH (12:00)
[2020-09-21] MEDS ORDERED: VANCOMYCIN 1,750 MG in SODIUM CHLORIDE 0.9% 500 ML 500 ML IVPB SCH ×4 (14:00)
[2020-09-21 16:59] LABS: Glucose,Whole Blood 259 mg/dL (75-99)
[2020-09-21 20:10] LABS: Glucose,Whole Blood 283 mg/dL (75-99)
[2020-09-21] MEDS ORDERED: METOPROLOL SUCCINATE (ER) 25 MG TAB.ER.24H PO SCH ×2 (21:00)
[2020-09-21] MEDS ORDERED: NON FORMULARY DRUG (Glipizide Xl 10 MG Tab.Er.24) PO SCH (21:00)
[2020-09-21] MEDS ORDERED: INSULIN DETEMIR (LEVEMIR) 100 UNIT/ML SYR SQ SCH (21:00)
[2020-09-21] MEDS ORDERED: PRAVASTATIN SODIUM 20 MG TAB PO SCH (21:00)
--- NOTE | 2020-09-21 23:15 | P.CONS ---
History of Present Illness - Reason for Consult Consult date: 09/21/20 sirs unknown source Requesting physician: Joe York - Chief Complaint palpitations x 1 day - History of Present Illness History of present illness : Patient is 64-year-old female who apparently presented to [facility] for evaluation of palpitation pat ient symptoms started her day presentation to the hospital patient was diagnosed with a sinus tachycardia versus flutter and there was also question of possible left-sided pneumonia patient did have elevated lactic acid and the patient was subsequently transferred to [facility] for further management of underlying chronic condition on presentation to this hospital patient was afebrile patient is currently satting 98% on room air patient did have elevated lactic acid of 3.8 White was evaluated 11,000 kidney function was normal procalcitonin was normal veliz PCR was negative patient did have a chest x-ray repeated with perihilar left basilar opacity question of atelectasis versus pneumonia infectious he was consulted for possible source unknown etiology patient currently denies having any chest pain or shortness of breath but denies any cough or sputum production no URI symptoms no nausea no vomiting no abdominal pain no diarrhea Review of system: Positive point has been mentioned in HPI rest of the systems are negative Past medical history : Reviewed, documented below Past surgical history : Reviewed, documented below Social history: Reviewed, documented below Medications: Reviewed, as documented below GENERAL DESCRIPTION: Middle-aged female lying in bed, no distress. No tachypnea or accessory muscle of respiration use. HEENT: Shows Pallor , no scleral icterus. Oral mucous membrane is dry. NECK: Trachea central, no thyromegaly. LUNGS: Unlabored breathing. Clear to auscultation anteriorly. No wheeze or crackle. HEART: S1, S2, regular rate and rhythm. ABDOMEN: Soft, no tenderness , guarding or rigidity EXTREMITIES: No edema of feet. SKIN: No rash, no masses palpable. NEUROLOGICAL: The patient is awake, alert, oriented x3, mood and affect normal. LABS AND RADIOLOGY: Reviewed results see below Assessment : Patient presented to hospital with palpitation in this patient who does not have any fever patient do not have any cough or sputum production to be suspicious for pneumonia patient abdominal soft on clinical evaluation and did not have any urinary symptoms and no evidence of encephalitis currently with no obvious focus of infection, did have elevated lactic acid could be related to her underlying cardiac etiology Plan: 1-with no clear focus of infection and normal procalcitonin recommend to discontinue antibiotic therapy and monitor patient closely off antibiotics 2-if the patient spike any fever to obtain appropriate culture before starting patient antibiotics 3-management of underlying cardiac condition per cardiology We will follow on clinical condition and cultures to further adjust medication if needed Thank you for this consultation we will follow the patient along with you Past Medical History Past Medical History: Diabetes Mellitus, Hypertension Additional Past Medical History / Comment(s): stomach ulcer History of Any Multi-Drug Resistant Organisms: None Reported Past Surgical History: Section Past Anesthesia/Blood Transfusion Reactions: No Reported Reaction Past Psychological History: No Psychological Hx Reported Smoking Status: Former smoker Past Alcohol Use History: None Reported Past Drug Use History: None Reported - Past Family History Mother Family Medical History: Cancer, Coronary Artery Disease (CAD), Diabetes Mellitus Father Family Medical History: Cancer Medications and Allergies Home Medications Medication Instructions Recorded Confirmed Type Insulin Detemir [Levemir Flextouch] 30 units SQ HS 09/20/20 09/20/20 History Insulin Detemir [Levemir Flextouch] See Protocol SQ DAILY 09/20/20 09/20/20 History Levothyroxine Sodium [Synthroid] 75 mcg PO AC-BRKFST 09/20/20 09/20/20 History Lisinopril-Hctz 20-12.5 mg 1 tab PO DAILY 09/20/20 09/20/20 History [Zestoretic 20-12.5] Metoprolol Succinate [Toprol XL] 25 mg PO HS 09/20/20 09/20/20 History Pantoprazole Sodium [Protonix] 40 mg PO AC-BID 09/20/20 09/20/20 History Pravastatin Sodium [Pravachol] 20 mg PO HS 09/20/20 09/20/20 History glipiZIDE XL [Glucotrol Xl] 20 mg PO HS 09/20/20 09/20/20 History metFORMIN HCL [Glucophage] 1,000 mg PO BID 09/20/20 09/20/20 History sitaGLIPtin [Januvia] 100 mg PO DAILY 09/20/20 09/20/20 History Allergies Allergy/AdvReac Type Severity Reaction Status Date / Time No Known Allergies Allergy Verified 09/20/20 21:28 Physical Exam Vitals: Vital Signs Temp Pulse Resp BP Pulse Ox 09/21/20 20:00 98.8 F 90 16 142/69 09/21/20 16:00 99.0 F 94 18 120/67 98 09/21/20 14:00 93 18 09/21/20 11:56 99.3 F 93 18 126/65 100 09/21/20 08:00 97.8 F 103 H 16 130/65 98 09/21/20 03:37 98.8 F 116 H 15 123/57 96 09/21/20 01:41 18 Intake and Output 09/21/20 09/21/20 09/22/20 14:59 22:59 06:59 Intake Total 1280 240 Balance 1280 240 Intake: Intake, IV Titration 800 Amount Sodium Chloride 0.9% 1, 800 000 ml @ 100 mls/hr IV . Q10H [facility] Rx#:[id number] Oral 480 240 Other: Voiding Method Toilet Toilet # Voids 3 1 Results CBC & Chem 7: 09/21/20 03:01 09/21/20 03:01 Labs: Abnormal Lab Results - Last 24 Hours (Table) 09/21/20 09/21/20 09/21/20 Range/Units 00:04 03:01 03:01 RBC 3.30 L (3.80-5.40) m/uL Hgb 10.6 L (11.4-16.0) gm/dL Hct 30.5 L (34.0-46.0) % Chloride 112 H (98-107) mmol/L Carbon Dioxide 20 L (22-30) mmol/L BUN 18 H (7-17) mg/dL Glucose 267 H (74-99) mg/dL POC Glucose (mg/dL) (75-99) mg/dL Plasma Lactic Acid Jose Carlos 4.0 H* (0.7-2.0) mmol/L Calcium 8.0 L (8.4-10.2) mg/dL 09/21/20 09/21/20 09/21/20 Range/Units 03:01 05:55 07:36 RBC (3.80-5.40) m/uL Hgb (11.4-16.0) gm/dL Hct (34.0-46.0) % Chloride (98-107) mmol/L Carbon Dioxide (22-30) mmol/L BUN (7-17) mg/dL Glucose (74-99) mg/dL POC Glucose (mg/dL) 220 H (75-99) mg/dL Plasma Lactic Acid Jose Acrlos 2.6 H* 3.5 H* (0.7-2.0) mmol/L Calcium (8.4-10.2) mg/dL 09/21/20 09/21/20 09/21/20 Range/Units 10:18 11:45 13:05 RBC (3.80-5.40) m/uL Hgb (11.4-16.0) gm/dL Hct (34.0-46.0) % Chloride (98-107) mmol/L Carbon Dioxide (22-30) mmol/L BUN (7-17) mg/dL Glucose (74-99) mg/dL POC Glucose (mg/dL) 283 H (75-99) mg/dL Plasma Lactic Acid Jose Carlos 3.3 H* 3.8 H* (0.7-2.0) mmol/L Calcium (8.4-10.2) mg/dL 09/21/20 09/21/20 Range/Units 16:57 20:09 RBC (3.80-5.40) m/uL Hgb (11.4-16.0) gm/dL Hct (34.0-46.0) % Chloride (98-107) mmol/L Carbon Dioxide (22-30) mmol/L BUN (7-17) mg/dL Glucose (74-99) mg/dL POC Glucose (mg/dL) 259 H 283 H (75-99) mg/dL Plasma Lactic Acid Jose Carlos (0.7-2.0) mmol/L Calcium (8.4-10.2) mg/dL
[2020-09-22] MEDS: SODIUM CHLORIDE 0.9% 1,000 ML IV SCH (05:00)
[2020-09-22 06:39] LABS: Glucose,Whole Blood 186 mg/dL (75-99)
[2020-09-22] MEDS: INSULIN DETEMIR (LEVEMIR) 100 UNIT/ML SYR SQ SCH (06:52)
[2020-09-22] MEDS: INSULIN ASPART (NovoLOG) 100 UNIT/ML VIAL SQ SCH ×2 (06:53→12:00)
[2020-09-22] MEDS: PANTOPRAZOLE 40 MG TABLET PO SCH (06:53)
[2020-09-22] MEDS: LEVOTHYROXINE 75 MCG TAB PO SCH (06:53)
[2020-09-22 07:35] VITALS: RESP 18; TEMP 99.1
[2020-09-22] MEDS: MAGNESIUM OXIDE 400 MG TAB PO SCH (08:13)
[2020-09-22] MEDS: lisinopriL 20 MG TAB PO SCH (08:13)
[2020-09-22] MEDS: HEPARIN SODIUM,PORCINE/PF 5,000 UNIT/0.5 ML SYRINGE SQ SCH (08:13)
[2020-09-22] MEDS: TRIAMTERENE-HCTZ 75-50MG 1 EACH TAB PO SCH (08:14)
[2020-09-22 08:26] VITALS: BP 128/61; PULSE 89
[2020-09-22] MEDS ORDERED: AZITHROMYCIN 250 MG TAB PO SCH (09:00)
--- NOTE | 2020-09-22 09:01 | ECHOF ---
Referral Reason:palpitations MEASUREMENTS -------- HEIGHT: 162.6 cm WEIGHT: 105.2 kg BP: 130/65 RVIDd: 3.3 cm (< 3.3) IVSd: 1.3 cm (0.6 - 1.1) LVIDd: 3.8 cm (3.9 - 5.3) LVPWd: 1.3 cm (0.6 - 1.1) IVSs: 2.0 cm LVIDs: 2.5 cm LVPWs: 1.5 cm LA Diam: 3.5 cm (2.7 - 3.8) LAESV Index (A-L): 21.61 ml/m Ao Diam: 3.1 cm (2.0 - 3.7) AV Cusp: 2.0 cm (1.5 - 2.6) MV EXCURSION: 10.759 mm (> 18.000) MV EF SLOPE: 78 mm/s (70 - 150) EPSS: 0.9 cm MV E Blu: 0.78 m/s MV DecT: 231 ms MV A Blu: 0.95 m/s MV E/A Ratio: 0.82 RAP: 5.00 mmHg RVSP: 21.14 mmHg FINDINGS -------- Sinus rhythm. This was a technically adequate study. The left ventricular size is normal. There is mild concentric left ventricular hypertrophy. Overa ll left ventricular systolic function is normal with, an EF between 60 - 65 %. The right ventricle is mildly enlarged. Normal LA size by volume 22+/-6 ml/m2. The right atrium is normal in size. Interatrial and interventricular septum intact. The aortic valve is trileaflet, and appears structurally normal. No aortic stenosis or regurgitation. There is trace to mild mitral regurgitation. Mild tricuspid regurgitation present. Right ventricular systolic pressure is normal at < 35 mmHg. Trace/mild (physiologic) pulmonic regurgitation. The aortic root size is normal. Normal inferior vena cava with normal inspiratory collapse consistent with estimated right atrial pre ssure of 5 mmHg. There is no pericardial effusion. CONCLUSIONS -------- 1. The left ventricular size is normal. 2. There is mild concentric left ventricular hypertrophy. 3. Overall left ventricular systolic function is normal with, an EF between 60 - 65 %. 4. The right ventricle is mildly enlarged. 5. Normal LA size by volume 22+/-6 ml/m2. 6. The aortic valve is trileaflet, and appears structurally normal. No aortic stenosis or regurgitati on. 7. There is trace to mild mitral regurgitation. 8. Mild tricuspid regurgitation present. 9. Trace/mild (physiologic) pulmonic regurgitation. 10. There is no pericardial effusion. [employer] OPERATOR: Tanna Lyon RDCS
[2020-09-22 09:12] LABS: Basophils # (A) 0.1 k/uL (0-0.2); Basophils % (A) 1 %; Eosinophils # (A) 0.1 k/uL (0-0.7); Eosinophils % (A) 1 %; HCT 36.8 % (34.0-46.0); HGB 11.6 gm/dL (11.4-16.0); Hypochromasia Slight; Lymphocytes # (A) 2.4 k/uL (1.0-4.8); Lymphocytes % (A) 33 %; MCH 30.4 pg (25.0-35.0); MCHC 31.4 g/dL (31.0-37.0); MCV 96.7 fL (80.0-100.0); Mean Platelet Volume 7.5; Monocytes # (A) 0.4 k/uL (0-1.0); Monocytes % (A) 5 %; Neutrophils # (A) 4.4 k/uL (1.3-7.7); Neutrophils % (A) 59 %; Platelet Count 234 k/uL (150-450); RDW 13.7 % (11.5-15.5); WBC 7.5 k/uL (3.8-10.6)
[2020-09-22 09:28] LABS: African American GFR (CKD) >90 (>60 ml/min/1.73 sqM); Anion Gap 5 mmol/L; Blood Urea Nitrogen 9 mg/dL (7-17); C Reactive Protein 1.5 mg/dL (<1.0); Calcium 8.7 mg/dL (8.4-10.2); Carbon Dioxide 23 mmol/L (22-30); Chloride 111 mmol/L (98-107); Glucose 241 mg/dL (74-99); LDH 361 U/L (313-618); Magnesium 1.6 mg/dL (1.6-2.3); Non-African American GFR(CKD) >90 (>60 ml/min/1.73 sqM); Potassium 4.5 mmol/L (3.5-5.1); Sodium 139 mmol/L (137-145)
--- NOTE | 2020-09-22 09:39 | P.PN ---
Subjective Progress Note Date: 09/22/20 HISTORY OF PRESENT ILLNESS: This is a pleasant 64-year-old female past medical history significant for obese mellitus, hypertension, dyslipidemia and hypothyroidism. She follows in the office with Dr. Hope. We have been asked to see in consultation for tachycardia. He presented to the hospital with symptoms of palpitations and dizziness. She states she checked her heart rate at home and it was in the 130s. Prompting her to present to the emergency department. On arrival she was found to be tachycardic with a heart rate of 140. She was given IV fluid hydration and her symptoms improved. She is seen and examined resting comfortably lying flat in no acute distress. She denies any further symptoms of palpitations. She has no dizziness. She denies chest pain or shortness of breath. She saw Dr. Hope in the office last week and he changed her beta ina from short acting Lopressor to long-acting Toprol. No change in dosage. DIAGNOSTICS EKG reveals sinus tachycardia heart rate of 108. Telemetry tracings indicate sinus mechanism. Chest xray left basilar opacity, atelectasis versus pneumonia. Laboratory reviewed, WBC 9.4, hemoglobin 10.6, platelets 200, sodium 138, potassium 4.3, creatinine 0.75, lactic acid 3.5, troponin negative 3, magnesium on admission 0.9 repeat today 1.6, TSH 1.18. Current cardiac medications include lisinopril/hydrochlorothiazide 20/12.5 mg daily, Toprol 25 mg daily and pravastatin 20 mg daily. Most recent echocardiogram obtained in 2017 revealed preserved LV systolic function with impaired diastolic function. 09/22/2020 Patient examined this morning at the bedside. Patient states she is feeling much better today. She denies chest pain or pressure. She denies shortness of breath. She denies cough or congestion. Magnesium this morning 1.6. Orthostatic blood pressures obtained were unremarkable. Blood pressure this morning 128/61. Heart rate is in 80s to 90s. Echocardiogram completed revealed ejection fraction 60-65%. Trace to mild mitral regurgitation. Mild tricuspid regurgitation. PHYSICAL EXAM: VITAL SIGNS: Reviewed. GENERAL: Well-developed in no acute distress. NECK: Supple. No JVD or thyromegaly LUNGS: Respirations even and unlabored. Lungs essentially clear to auscultation bilaterally. HEART: Regular rate and rhythm. S1 and S2 heard. EXTREMITIES: Normal range of motion. No clubbing or cyanosis. Peripheral pulses intact. No lower extremity edema ASSESSMENT: Sinus tachycardia Lactic acidosis Hypomagnesemia, resolved Possible pneumonia Obesity: BMI 39.4 PLAN: Continue current cardiac medications Patient is stable from a cardiac standpoint She is to follow up outpatient with Dr. oHpe Nurse practitioner note has been reviewed by physician. Signing provider agrees with the documented findings, assessment, and plan of care. Objective - Vital Signs Vital signs: Vital Signs Temp 99.1 F 09/22/20 07:35 Pulse 89 09/22/20 08:24 Resp 18 09/22/20 07:36 BP 128/61 09/22/20 08:24 Pulse Ox 98 09/22/20 07:35 Intake & Output 09/21/20 09/22/20 09/22/20 18:59 06:59 18:59 Intake Total 1520 240 Balance 1520 240 Weight 104 kg Intake: Intake, IV Titration 800 Amount Sodium Chloride 0.9% 1, 800 000 ml @ 100 mls/hr IV . Q10H [facility] Rx#:[id number] Oral 720 240 Other: Voiding Method Toilet Toilet Toilet # Voids 3 2 - Labs CBC & Chem 7: 09/22/20 08:22 09/22/20 08:22 Labs: Abnormal Lab Results - Last 24 Hours (Table) 09/21/20 09/21/20 09/21/20 Range/Units 10:18 11:45 13:05 Chloride (98-107) mmol/L Glucose (74-99) mg/dL POC Glucose (mg/dL) 283 H (75-99) mg/dL Plasma Lactic Acid Jose Carlos 3.3 H* 3.8 H* (0.7-2.0) mmol/L C-Reactive Protein (<1.0) mg/dL 09/21/20 09/21/20 09/22/20 Range/Units 16:57 20:09 06:37 Chloride (98-107) mmol/L Glucose (74-99) mg/dL POC Glucose (mg/dL) 259 H 283 H 186 H (75-99) mg/dL Plasma Lactic Acid Jose Carlos (0.7-2.0) mmol/L C-Reactive Protein (<1.0) mg/dL 09/22/20 Range/Units 08:22 Chloride 111 H (98-107) mmol/L Glucose 241 H (74-99) mg/dL POC Glucose (mg/dL) (75-99) mg/dL Plasma Lactic Acid Jose Carlos (0.7-2.0) mmol/L C-Reactive Protein 1.5 H (<1.0) mg/dL Microbiology - Last 24 Hours (Table) 09/20/20 20:52 Blood Culture - Preliminary Blood No Growth after 24 hours 09/20/20 21:17 Blood Culture - Preliminary Blood No Growth after 24 hours
[2020-09-22 11:55] LABS: Glucose,Whole Blood 229 mg/dL (75-99)
--- NOTE | 2020-09-22 16:44 | P.DS ---
Providers Date of admission: 09/20/20 22:15 Expected date of discharge: 09/22/20 Attending physician: Joe York MD Consults: 09/20/20 22:16 Consult Physician Routine Consulting Provider: John Hope Consult Reason/Comments: sinus tachycardia Do you want consulting provider notified?: Yes 09/21/20 00:10 Consult Physician Urgent Consulting Provider: Crissy Burt Consult Reason/Comments: SIRS, unknown etiology Do you want consulting provider notified?: Yes Primary care physician: Thai Nelson MD Hospital Course: Discharge Diagnosis: Community-acquired pneumonia with sepsis, COVID-19 day of Sinus tachycardia Diabetes mellitus type 2 with hyperglycemia Lactic acidosis Obesity with BMI 39.4 Hypomagnesemia Hypertension Dyslipidemia Hospital Course: Patient is a 64-year-old female the past medical history of type 2 diabetes, hypertension dyslipidemia, and hypothyroidism who was transferred here from [facility] secondary to complaints of palpitation. Patient had recently had her metoprolol decreased to 25 twice a day to 25 once daily. She was presenting with complaints of cough and feeling tired as well. EKG revealed sinus tachycardia. COVID-19 testing was negative. She was admitted with third. Cardiology was consulted and she was already on broad-spectrum antibiotics. C hest x-ray showed a possible left basilar pneumonia. She was seen by infectious disease who felt she did not have a sore throat infection. She did have a pro- calcitonin level drawn which was normal however this was greater than 24 hours after antibiotics had been started. She also was noted to have an elevated plasma lactic acid on admission which was felt to be secondary to a combination of sepsis and metformin use. During her hospital stay she was treated with Rocephin and Zithromax. She was seen by cardiology who felt that her tachycardia was sepsis mediated as well as secondary to beta ina withdrawal. She remained afebrile during her hospital stay. Her heart rate decreased to the 80s. Her leukocytosis resolved. She was determined stable for discharge. Imaging: Echocardiogram ejection fraction 60-65% Chest x-ray: Left basilar opacity Follow-up: Completes a five-day course of the Permax and cefdinir with 3 additional days follow up with her primary care nurse practitioner for repeat chest x-ray in 1 week, follow up with Dr. Hope as indicated. Recommending staying off of metformin secondary to lactic acidosis, likely not getting much added benefit from this in addition to her Januvia, Glucotrol, and Levemir. Patient seen and examined at bedside. Feeling back to her normal self. Coughing is better. No chest pain or shortness of breath. Vital signs reviewed and stable. General: non toxic, no distress, appears at stated age Derm: warm, dry Head: atraumatic, normocephalic, symmetric Eyes: EOMI, no lid lag, anicteric sclera Mouth: no lip lesion, mucus membranes moist Cardiovascular: S1S2 reg, no murmur, positive posterior tibial pulse bilateral, Lungs: Rhonchi at left base bilateral, no accessory muscle use Abdominal: soft, nontender to palpation, no guarding, no appreciable organomegaly Ext: no gross muscle atrophy, no edema, no contractures Neuro: CN II-XI grossly intact, no focal neuro deficits Psych: Alert, oriented, appropriate affect A total of 37 minutes of time were spent preparing this complex discharge summary . Patient Condition at Discharge: Stable Plan - Discharge Summary Discharge Rx Participant: No New Discharge Prescriptions: New Cefdinir [Omnicef] 300 mg PO Q12HR #6 capsule Azithromycin [Zithromax] 250 mg PO DAILY #3 tab Magnesium Oxide [Mag-Ox] 400 mg PO DAILY #30 tab Continue Pantoprazole Sodium [Protonix] 40 mg PO AC-BID Levothyroxine Sodium [Synthroid] 75 mcg PO AC-BRKFST Lisinopril-Hctz 20-12.5 mg [Zestoretic 20-12.5] 1 tab PO DAILY sitaGLIPtin [Januvia] 100 mg PO DAILY Insulin Detemir [Levemir Flextouch] 30 units SQ HS Pravastatin Sodium [Pravachol] 20 mg PO HS glipiZIDE XL [Glucotrol XL] 20 mg PO HS Insulin Detemir [Levemir Flextouch] See Protocol SQ DAILY Metoprolol Succinate [Toprol XL] 25 mg PO HS Discontinued metFORMIN HCL [Glucophage] 1,000 mg PO BID Discharge Medication List Insulin Detemir [Levemir Flextouch] 30 units SQ HS 09/20/20 [History] Insulin Detemir [Levemir Flextouch] See Protocol SQ DAILY 09/20/20 [History] Levothyroxine Sodium [Synthroid] 75 mcg PO AC-BRKFST 09/20/20 [History] Lisinopril-Hctz 20-12.5 mg [Zestoretic 20-12.5] 1 tab PO DAILY 09/20/20 [Histor y] Metoprolol Succinate [Toprol XL] 25 mg PO HS 09/20/20 [History] Pantoprazole Sodium [Protonix] 40 mg PO AC-BID 09/20/20 [History] Pravastatin Sodium [Pravachol] 20 mg PO HS 09/20/20 [History] glipiZIDE XL [Glucotrol XL] 20 mg PO HS 09/20/20 [History] sitaGLIPtin [Januvia] 100 mg PO DAILY 09/20/20 [History] Azithromycin [Zithromax] 250 mg PO DAILY #3 tab 09/22/20 [Rx] Cefdinir [Omnicef] 300 mg PO Q12HR #6 capsule 09/22/20 [Rx] Magnesium Oxide [Mag-Ox] 400 mg PO DAILY #30 tab 09/22/20 [Rx] Follow up Appointment(s)/Referral(s): John Hope MD [STAFF PHYSICIAN] - 1 Week (left a message with Kristine, she will call you for appointment. ) Thai Nelson MD [Primary Care Provider] - 09/25/20 11:00 am (With Thalia ) Patient Instructions/Handouts: Hypomagnesemia (DC) Activity/Diet/Wound Care/Special Instructions: Activity: as tolerated Diet: carb consistent Special Instructions: Recommend repeat chest x-ray after completion of antibiotic. Discharge Disposition: HOME SELF-CARE
[2020-09-22 16:53] LABS: Hemoglobin A1C 8.8 % (4.0-6.0)
--- NOTE | 2020-09-22 21:52 | P.PN ---
Progress Note - Text Progress Note Date: 09/22/20 REASON FOR FOLLOWUP: abnormal xray ? pneumoia. INTERVAL HISTORY: The patient is afebrile. The patient is feeling better, breathing comfortably. No chest pain, shortness of breath or cough. No palpitations , no abdominal pain or diarrhea. PHYSICAL EXAMINATION: On examination, blood pressure 103/57 with a pulse of 103, temperature 97.9. She is 97% on room air. GENERAL DESCRIPTION: General description is middle aged female up in the chair in no distress. RESPIRATORY SYSTEM: Unlabored breathing. Decreased breath sounds at the bases. No wheeze. HEART: S1, S2. Regular rate and rhythm. ABDOMEN: Soft. No tenderness. EXTREMITIES: No redness. LABS: reviewed DIAGNOSTIC IMPRESSION AND PLAN: pt with palpitations , abnormal xray ? pneumonia , not behaving as pneumonia and recommend watching pt closely off antibiotics
== END 2020-09-22 12:41 | disposition home or self-care (01) | DRG 871 ==
LOC: EC 20:17 → 3SCARD 22:15
PROVIDERS: ADMIT Internal Medicine; ATTEND Internal Medicine
DX: A41.9 Sepsis, unspecified organism (principal); J18.9 Pneumonia, unspecified organism; E87.2 Acidosis; E11.65 Type 2 diabetes mellitus with hyperglycemia; I10 Essential (primary) hypertension; Z79.4 Long term (current) use of insulin; Z79.890 Hormone replacement therapy; Z87.11 Personal history of peptic ulcer disease; Z87.891 Personal history of nicotine dependence; E03.9 Hypothyroidism, unspecified; Z20.822 Contact with and (suspected) exposure to COVID-19; E83.42 Hypomagnesemia; E78.5 Hyperlipidemia, unspecified; Z82.49 Family history of ischemic heart disease and other diseases of the circulatory system; Z83.3 Family history of diabetes mellitus; R00.0 Tachycardia, unspecified; E66.9 Obesity, unspecified; Z68.39 Body mass index [BMI] 39.0-39.9, adult; Z79.899 Other long term (current) drug therapy
CPT/HCPCS: 36415; 71045; 80048; 83036; 83605; 83615; 83735; 84145; 84443; 84484; 85025; 85027; 85379; 85610; 85730; 86140; 87040; 87635; 93005; 93306; 96365; 99285